=== PATIENT | male | born 1975 | race Two or more races ===

== ENCOUNTER 2024-03-16 14:11 | Outpatient (AMB) | payer MEDICAID, SELFPAY ==
[2024-03-16 14:31] VITALS: BP 116/73; PULSE 66; RESP 19; TEMP 36.2; O2SAT 97; BMI 24.6
--- NOTE | 2024-03-16 14:31 | PD.ORTHCLVIS ---
Vital signs 03/16/24 14:31 Height 1.75 m Height Method Stated Weight 75.438 kg Weight Measurement Method Standing Scale BMI 24.6 BP 116/73 Blood Pressure Source Automatic Cuff Blood Pressure Location Right Upper Arm Position Sitting Respiration 19 Pulse 66 Pulse Source Monitor Temp 97.2 F Temp Source Temporal Artery Scan Pulse Oximetry (%) 97 Oxygen Delivery Method Room Air Med/Allergies Allergies & Medications Allergies No Known Allergies Allergy (Verified 03/16/24 14:37) Medication Reconciliation cholecalciferol (vitamin D3) 1,250 mcg (50,000 unit) tablet 1,250 mcg PO QWEEK 12/30/23 [History Confirmed 03/16/24] meloxicam 7.5 mg tablet 7.5 mg PO QDAY #45 tabs 01/03/24 [Rx Confirmed 03/16/24] Subjective Visit Visit for: follow up visit, hip and MRI Immunization / Flu Flu Vaccine in the Last 12 Months: Yes Flu Vaccine Exclusion Criteria: Already Received History of Present Illness Chief complaint: MRI RESULTS Patient is a 48-year-old male with left hip pain. .He had a fall off of a roof last year. He has been walking on it since then. He reports the pain has been progressive. He has not been evaluated by physician until 2 months ago and was told he had a left hip fracture. He is using crutches to ambulate. Personal History Occupation: [employer] Red flag PMH: smoker Pain Pain level (0-10): 8 Pain duration: CONSTANT Pain location: groin Pain quality: sharp Pain timing: night, increases with activity and stairs Associated signs & symptoms: stiffness Ambulatory data Ambulatory device: other (specify) (CRUTCHES) Treatments Improvement with previous injections: No Improvement with PT: No Improvement with NSAIDS: no Review of Systems Review of Systems: All systems negative unless otherwise noted in HPI. Exam Exam Patient is in no acute distress and is cooperative with the examination today. Breathing is nonlabored. In no respiratory distress. Patient has no paraspinal tenderness. Spinal deformity [cannot] be appreciated. The gait of the patient is [nonantalgic] Bilateral extremities were evaluated and demonstrates sensation intact to light touch. Palpable pedal pulses are present. No significant edema is present. Bilateral knees were examined and the patient has full strength and range of motion.. The right hip was examined. Patient was able to flex to 90 degrees, adduct to 30 degrees, abduct to 40 degrees, internally rotate to 20 degrees, and externally rotate to 20 degrees. Patient has a negative logroll. Stinchfield is negative. The patient is nontender diffusely to touch. The left hip was examined. Patient was able to flex to [90] degrees, adduct to [30] degrees, abduct to [40] degrees, internally rotate to [20] degrees, and externally rotate to [20] degrees. Patient has a positive logroll. Leg lengths are equal. He has no x-rays X-rays demonstrate significant sclerosis in the left hand with some collapse indicative of left hip avascular necrosis. Assessment and Plan Problem List (1) Avascular necrosis of bone of left hip: Status: Acute Plan: Patient is a 48-year-old male with left hip avascular necrosis. We discussed nonoperative and operative options. We obtained an MRI and this confirmed avascular necrosis of the femoral head. We thus discussed total hip replacement is a reasonable option given the failure of conservative treatment occluding physical therapy. The nature and purpose of the total hip replacement, alternative method(s) of treatment, the material risks involved, and the possibility of complications were fully explained to the patient. The patient does NOT have any of the following contraindications to PHIL: - Active infection of the hip joint, OR - Active systemic bacteremia, OR - Active skin infection or open wound at surgical site, OR - Neuropathic arthritis, OR - Severe, rapidly progressive neurological disease, OR - Severe medical condition that makes risks of the surgery outweigh the potential benefit The patient was told the most common risks and complications associated with a total hip replacement include, but are not limited to: blood clots in the leg, fatal pulmonary embolism, dislocation of the prosthesis, intraoperative and postoperative fractures of the femur or acetabulum, infection, failure of the prosthesis or grafting materials, complications from anesthesia, reactions to blood transfusions, postoperative leg length inequality, instability of the hip replacement, nerve damage or injury, vascular injury, delayed wound healing, infection, other injury or even . In addition, there are risks associated with anesthesia given during this operation. Also, the patient was told that after undergoing a total hip replacement there may still be persistent pain or disability. The patient was informed that the success of this operation in part depends upon the mechanical devices which are going to be implanted and that these devices can fail or malfunction, and may need to be repaired or replaced and there are no guarantees as to the longevity of this device or its parts and that it or its parts could fail prematurely. The patient was also notified that during the course of surgery, there may be a need to use bone graft from donors, and that any bone graft used will be carefully screened for communicable diseases, including AIDS, hepatitis, Vicente-Creutzfeldt, or other diseases, but despite the screening procedures, there is a small chance that they could contract one of these diseases. Finally, the patient was asked to follow completely and fully with all advice and recommended treatments, and that recovery and ultimate outcome are affected by their compliance with recommended treatment. We discussed the risks, benefits and treatment alternatives, and the patient is interested in proceeding with surgery. We will try to set this up as expeditiously as possible. Office Procedures GNS Level of Care Nursing/Assessment Patient Status: Established Patient Nursing Assessment/Reassesment: Medication Reconciliation, Update PMH in EMR and Vital Signs Coordination of Care: Complex Care and Chronic Disease 1-5, Education Complex Pt/Fam, Consent,records obtained, informed consent, 1 Ins Authorization and Staff clarify orders Established Patient Charge Established Patient Point Assignment: 105 Established Patient Point Charge: EP Level 3 (80-115) Past Medical History Past Medical History Have you ever been diagnosed with any of the following: Respiratory Problems Cough: No Smoking: Yes (CANNABIS) Smoking Exposure: Yes
== END 2024-03-16 14:47 | disposition home or self-care (01) ==
LOC: HODSRG 14:11
PROVIDERS: Supervising Provider Orthopaedic Surgery Adult Reconstructive Orthopaedic Surgery; Visit Provider Orthopaedic Surgery Adult Reconstructive Orthopaedic Surgery
DX: M25.552 Pain in left hip (principal); Z87.891 Personal history of nicotine dependence
CPT/HCPCS: 99213; G0463

== ENCOUNTER 2024-04-17 14:20 | Outpatient (AMB) | payer MEDICAID, SELFPAY ==
[2024-04-17 14:35] VITALS: BP 107/72; PULSE 72; RESP 18; TEMP 36.4; O2SAT 97; BMI 31.1
--- NOTE | 2024-04-17 14:35 | ORTHONT_ITS ---
Vital signs 04/17/24 14:35 Height 1.57 m Height Method Stated Weight 76.856 kg Weight Measurement Method Standing Scale BMI 31.1 BP 107/72 Blood Pressure Source Automatic Cuff Blood Pressure Location Right Upper Arm Position Sitting Respiration 18 Pulse 72 Pulse Source Monitor Temp 97.5 F Temp Source Temporal Artery Scan Pulse Oximetry (%) 97 Oxygen Delivery Method Room Air Med/Allergies Allergies & Medications Allergies No Known Allergies Allergy (Verified 04/17/24 14:39) Medication Reconciliation meloxicam 7.5 mg tablet 7.5 mg PO QDAY #45 tabs 01/03/24 [Rx Confirmed 04/17/24] acetaminophen 500 mg tablet (Acetaminophen Extra Strength) 1,000 mg (2 x 500 mg) PO Q6H PRN pain #90 tabs 03/28/24 [Rx Confirmed 04/17/24] aspirin 81 mg tablet,delayed release 81 mg PO BID #60 tabs 03/28/24 [Rx Confirmed 04/17/24] doxycycline hyclate 100 mg tablet 100 mg PO BID #14 tabs 03/28/24 [Rx Confirmed 04/17/24] gabapentin 300 mg capsule 300 mg PO .qhs #30 caps 03/28/24 [Rx Confirmed 04/17/24] oxycodone 5 mg tablet 5 mg PO Q6H PRN pain #28 tabs 03/28/24 [Rx Confirmed 04/17/24] sennosides 8.6 mg-docusate sodium 50 mg tablet (Senna-S) 1 tab-cap PO QDAY #30 tabs 03/28/24 [Rx Confirmed 04/17/24] Subjective Visit Visit for: follow up visit and knee Immunization / Flu Flu Vaccine in the Last 12 Months: No Flu Vaccine Exclusion Criteria: Already Received History of Present Illness Chief complaint: MRI RESULTS Patient is a 48-year-old male with left hip pain. He is status post left hip replacement. He is doing well. He is in outpatient physical therapy Personal History Occupation: [employer] Red flag PMH: smoker Pain Pain level (0-10): 4 Pain duration: ON AND OFF Pain location: inside (medial) Pain quality: aching Pain timing: increases with activity Associated signs & symptoms: none Ambulatory data Ambulatory device: none Treatments Improvement with previous injections: No Improvement with PT: No Improvement with NSAIDS: no Review of Systems Review of Systems: All systems negative unless otherwise noted in HPI. Exam Exam Patient is in no acute distress and is cooperative with the examination today. Breathing is nonlabored. In no respiratory distress. Patient has no paraspinal tenderness. Spinal deformity [cannot] be appreciated. The gait of the patient is [nonantalgic] Bilateral extremities were evaluated and demonstrates sensation intact to light touch. Palpable pedal pulses are present. No significant edema is present. Bilateral knees were examined and the patient has full strength and range of motion.. The right hip was examined. Patient was able to flex to 90 degrees, adduct to 30 degrees, abduct to 40 degrees, internally rotate to 20 degrees, and externally rotate to 20 degrees. Patient has a negative logroll. Stinchfield is negative. The patient is nontender diffusely to touch. Left hip incision is clean dry and intact Assessment and Plan Problem List (1) Avascular necrosis of bone of left hip: Status: Acute (2) Status post total hip replacement, left: Status: Acute Plan: Patient is doing well status post left total hip replacement. We recommend that he continue outpatient physical therapy. He should finish off his aspirin. Will see him in 4 weeks Office Procedures GNS Level of Care Nursing/Assessment Patient Status: Established Patient Nursing Assessment/Reassesment: Medication Reconciliation, Update PMH in EMR and Vital Signs Coordination of Care: Complex Care and Chronic Disease 1-5, Education Complex Pt /Fam, Consent,records obtained, informed consent, 1 Ins Authorization, Results/Orders obtained and Staff clarify orders Established Patient Charge Established Patient Point Assignment: 110 Established Patient Point Charge: EP Level 3 (80-115) Past Medical History Past Medical History Have you ever been diagnosed with any of the following: Neurological Problems Seizures: No Head Trauma: Yes Cardiology Problems Congestive Heart Failure: No Respiratory Problems Chronic Obstructive Pulmonary Disease (COPD): No Bronchitis: Yes (younger) Cough: No Smoking: Yes (CANNABIS) Smoking Exposure: Yes Stomache/Intestinal Problems Pancreatitis: Yes Genital/Urinary Problems Renal Disease: No Musculoskeletal Problems Fractures: Yes (Left hip) Endocrine Problems Diabetes Mellitus Type 1: No Diabetes Mellitus Type 2: No Psychologic Problems Depression: Yes (no meds) Anxiety: Yes Other Problems Hospitalization: Yes (pancreatitis) Shingles: No Blood Transfusions: No Blood Transfusion Reaction: No Anesthesia Reactions: No Chicken Pox: Yes Cancer: No
== END 2024-04-17 14:55 | disposition home or self-care (01) ==
LOC: HODSRG 14:20
PROVIDERS: Supervising Provider Orthopaedic Surgery Adult Reconstructive Orthopaedic Surgery; Visit Provider Orthopaedic Surgery Adult Reconstructive Orthopaedic Surgery
DX: M87.88 Other osteonecrosis, other site (principal); Z96.642 Presence of left artificial hip joint
CPT/HCPCS: 99213; G0463

== ENCOUNTER → 2024-06-04 | Outpatient (CLI) | payer MEDICAID, SELFPAY ==
--- NOTE | 2024-06-04 | XR_ITS ---
Examination:Left hip AP, lateral, AP pelvis 3 views Technique: Hip AP lateral, AP pelvis, 3 views Exam date and time:June 04, 2024 1132 hours Comparison 06/28/2023 INDICATIONS: Postop left hip arthroplasty March 28, 2024 FINDINGS: Total left hip arthroplasty. Satisfactory alignment. No fracture or dislocation. No loosening of the prosthetic components Mild to moderate narrowing right hip joint Bones of the pelvis intact IMPRESSION: Total left hip arthroplasty with satisfactory alignment.
== END | disposition home or self-care (01) ==
LOC: CDIM 11:09
PROVIDERS: Referring Provider Orthopaedic Surgery Adult Reconstructive Orthopaedic Surgery; Visit Provider Orthopaedic Surgery Adult Reconstructive Orthopaedic Surgery
DX: M16.12 Unilateral primary osteoarthritis, left hip (principal); Z96.642 Presence of left artificial hip joint
CPT/HCPCS: 73502

== ENCOUNTER 2024-06-15 09:06 | Outpatient (AMB) | payer MEDICAID, SELFPAY ==
[2024-06-15 09:26] VITALS: BP 121/83; PULSE 59; RESP 18; TEMP 36.3; O2SAT 99; BMI 30.7
--- NOTE | 2024-06-15 09:26 | PD.ORTHCLVIS ---
Vital signs 06/15/24 09:26 Height 1.57 m Height Method Stated Weight 75.863 kg Weight Measurement Method Standing Scale BMI 30.7 BP 121/83 Blood Pressure Source Automatic Cuff Blood Pressure Location Right Upper Arm Position Sitting Respiration 18 Pulse 59 L Pulse Source Monitor Temp 97.3 F Temp Source Temporal Artery Scan Pulse Oximetry (%) 99 Oxygen Delivery Method Room Air Med/Allergies Allergies & Medications Allergies No Known Allergies Allergy (Verified 06/15/24 09:27) Medication Reconciliation meloxicam 7.5 mg tablet 7.5 mg PO QDAY #45 tabs 01/03/24 [Rx Confirmed 06/15/24] gabapentin 300 mg capsule 300 mg PO .qhs #30 caps 03/28/24 [Rx Confirmed 06/15/24] Exam Exam Patient is in no acute distress and is cooperative with the examination today. Breathing is nonlabored. In no respiratory distress. Patient has no paraspinal tenderness. Spinal deformity [cannot] be appreciated. The gait of the patient is [nonantalgic] Bilateral extremities were evaluated and demonstrates sensation intact to light touch. Palpable pedal pulses are present. No significant edema is present. Bilateral knees were examined and the patient has full strength and range of motion.. The right hip was examined. Patient was able to flex to 90 degrees, adduct to 30 degrees, abduct to 40 degrees, internally rotate to 20 degrees, and externally rotate to 20 degrees. Patient has a negative logroll. Stinchfield is negative. The patient is nontender diffusely to touch. Left hip incision is clean dry and intact X-rays of the left hip replacement were reviewed. This demonstrates a cementless total hip replacement in good alignment position Assessment and Plan Problem List (1) Avascular necrosis of bone of left hip: Status: Acute (2) Status post total hip replacement, left: Status: Acute Plan: Patient is doing well status post left total hip replacement. We recommend that he continue outpatient physical therapy. He should finish off his aspirin. He is working with physical therapy and is doing [employer] workouts. He reports that his work is very demanding and requires him to lift 60 pounds. He is not quite there yet and we will thus give him 2 more months in order for him to return to work. He appears to be doing well Office Procedures GNS Level of Care Nursing/Assessment Patient Status: Established Patient Nursing Assessment/Reassesment: Medication Reconciliation, Update PMH in EMR and Vital Signs Coordination of Care: Complex Care and Chronic Disease 1-5, Education Complex Pt/Fam, Consent,records obtained, informed consent, Results/Orders obtained and Staff clarify orders Established Patient Charge Established Patient Point Assignment: 95 Established Patient Point Charge: EP Level 3 (80-115) MA Intake Visit Data Collection New Patient or Established: Established Patient (seen at [facility] within 3 years) Reason for Visit:: 4 WEEK FOLLOW UP HIP SX Seen by Clinical Staff ONLY (RN/MA): No Verbal consent obtained for Telemed visit?: No Information Technology Security Manager Required: No PCP or OBGYN visit in last 3 months: Yes Hx Now: No Do You Feel Safe at Home: Yes Authorities Contacted: N/A Questionairres Past Medical History Past Medical History Have you ever been diagnosed with any of the following: Neurological Problems Seizures: No Head Trauma: Yes Cardiology Problems Congestive Heart Failure: No Respiratory Problems Chronic Obstructive Pulmonary Disease (COPD): No Bronchitis: Yes (younger) Cough: No Smoking: Yes (CANNABIS) Smoking Exposure: Yes Stomache/Intestinal Problems Pancreatitis: Yes Genital/Urinary Problems Renal Disease: No Musculoskeletal Problems Fractures: Yes (Left hip) Endocrine Problems Diabetes Mellitus Type 1: No Diabetes Mellitus Type 2: No Psychologic Problems Depression: Yes (no meds) Anxiety: Yes Other Problems Hospitalization: Yes (pancreatitis) Shingles: No Blood Transfusions: No Blood Transfusion Reaction: No Anesthesia Reactions: No Chicken Pox: Yes Cancer: No Subjective Visit Visit for: follow up visit, post op #2 and hip Immunization / Flu Flu Vaccine in the Last 12 Months: No Flu Vaccine Exclusion Criteria: No Exclusion Criteria History of Present Illness Chief complaint: F/U 4 WKS HIP SX Date of injury / onset of symptoms: 03/28/2024 Alireza is a 48-year-old male who is 3-month status post left total hip replacement for avascular porosis. He has minimal pain. He is using a cane. He is doing [employer] workouts at Personal History Occupation: UNEMPLOYED Red flag PMH: none Pain Pain level (0-10): 2 Pain duration: COMES AND GOES Pain location: outside (lateral) and anterior Pain quality: sharp, dull and aching Pain timing: increases with activity Associated signs & symptoms: weakness Ambulatory data Ambulatory device: cane Treatments Improvement with previous injections: No Improvement with PT: Yes Improvement with NSAIDS: n/a Review of Systems Review of Systems: All systems negative unless otherwise noted in HPI.
== END 2024-06-15 09:56 | disposition home or self-care (01) ==
LOC: HODSRG 09:06
PROVIDERS: PCP Family Medicine; Referring Provider Family Medicine; Supervising Provider Orthopaedic Surgery Adult Reconstructive Orthopaedic Surgery; Visit Provider Orthopaedic Surgery Adult Reconstructive Orthopaedic Surgery
DX: M87.88 Other osteonecrosis, other site (principal); Z96.642 Presence of left artificial hip joint
CPT/HCPCS: 99213; G0463

== ENCOUNTER 2024-08-16 10:14 | Outpatient (AMB) | payer MEDICAID, SELFPAY ==
--- NOTE | 2024-08-16 11:00 | PD.ORTHCLVIS ---
Vital signs 08/16/24 11:01 Height 1.57 m Height Method Stated Weight 75.948 kg Weight Measurement Method Standing Scale BMI 30.8 BP 115/75 Blood Pressure Source Automatic Cuff Blood Pressure Location Left Upper Arm Position Sitting Respiration 18 Pulse 60 Pulse Source Monitor Temp 97.7 F Temp Source Temporal Artery Scan Pulse Oximetry (%) 97 Oxygen Delivery Method Room Air Med/Allergies Allergies & Medications Allergies No Known Allergies Allergy (Verified 06/15/24 09:27) Medication Reconciliation meloxicam 7.5 mg tablet 7.5 mg PO QDAY #45 tabs 01/03/24 [Rx Confirmed 08/16/24] gabapentin 300 mg capsule 300 mg PO .qhs #30 caps 03/28/24 [Rx Confirmed 08/16/24] Exam Exam Patient is in no acute distress and is cooperative with the examination today. Breathing is nonlabored. In no respiratory distress. Patient has no paraspinal tenderness. Spinal deformity [cannot] be appreciated. The gait of the patient is [nonantalgic] Bilateral extremities were evaluated and demonstrates sensation intact to light touch. Palpable pedal pulses are present. No significant edema is present. Bilateral knees were examined and the patient has full strength and range of motion.. The right hip was examined. Patient was able to flex to 90 degrees, adduct to 30 degrees, abduct to 40 degrees, internally rotate to 20 degrees, and externally rotate to 20 degrees. Patient has a negative logroll. Stinchfield is negative. The patient is nontender diffusely to touch. Left hip incision is clean dry and intact X-rays of the left hip replacement were reviewed. This demonstrates a cementless total hip replacement in good alignment position Assessment and Plan Problem List (1) Avascular necrosis of bone of left hip: Status: Acute (2) Status post total hip replacement, left: Status: Acute Plan: Patient is doing well status post left total hip replacement. We recommend that he continue outpatient physical therapy. He is working with physical therapy and is doing [employer] workouts. He reports that his work is very demanding and requires him to lift 60 pounds. He is not quite there yet and we will thus give him 2 more months in order for him to return to work. He appears to be doing well Office Procedures GNS Level of Care Nursing/Assessment Patient Status: Established Patient Nursing Assessment/Reassesment: Medication Reconciliation, Update PMH in EMR and Vital Signs Coordination of Care: Complex Care and Chronic Disease 1-5, Education Complex Pt/Fam, Consent,records obtained, informed consent, Results/Orders obtained and Staff clarify orders Established Patient Charge Established Patient Point Assignment: 95 Established Patient Point Charge: EP Level 3 (80-115) MA Intake Visit Data Collection New Patient or Established: Established Patient (seen at [facility] within 3 years) Reason for Visit:: F/U HIP REPLACEMENT Seen by Clinical Staff ONLY (RN/MA): No Ladies Underwear Operator Required: No PCP or OBGYN visit in last 3 months: Yes Hx Now: No Do You Feel Safe at Home: Yes Authorities Contacted: N/A Questionairres Past Medical History Past Medical History Have you ever been diagnosed with any of the following: Neurological Problems Seizures: No Head Trauma: Yes Cardiology Problems Congestive Heart Failure: No Respiratory Problems Chronic Obstructive Pulmonary Disease (COPD): No Bronchitis: Yes (younger) Cough: No Smoking: Yes (CANNABIS) Smoking Exposure: Yes Stomache/Intestinal Problems Pancreatitis: Yes Genital/Urinary Problems Renal Disease: No Musculoskeletal Problems Fractures: Yes (Left hip) Endocrine Problems Diabetes Mellitus Type 1: No Diabetes Mellitus Type 2: No Psychologic Problems Depression: Yes (no meds) Anxiety: Yes Other Problems Hospitalization: Yes (pancreatitis) Shingles: No Blood Transfusions: No Blood Transfusion Reaction: No Anesthesia Reactions: No Chicken Pox: Yes Cancer: No Subjective Visit Visit for: follow up visit and hip Immunization / Flu Flu Vaccine in the Last 12 Months: No Flu Vaccine Exclusion Criteria: No Exclusion Criteria History of Present Illness Chief complaint: F/U 4 WKS HIP SX Date of injury / onset of symptoms: 03/28/2024 Alireza is a 48-year-old male who is 5-month status post left total hip replacement for avascular porosis. He has minimal pain. Personal History Occupation: UNEMPLOYED Red flag PMH: none Pain Pain level (0-10): 1 Pain duration: COMES AND GOES Pain location: outside (lateral) Pain quality: sharp Pain timing: increases with activity Associated signs & symptoms: weakness Ambulatory data Ambulatory device: none Treatments Improvement with previous injections: No Improvement with PT: No Improvement with NSAIDS: no Review of Systems Review of Systems: All systems negative unless otherwise noted in HPI.
[2024-08-16 11:01] VITALS: BP 115/75; PULSE 60; RESP 18; TEMP 36.5; O2SAT 97; BMI 30.8
--- NOTE | 2024-08-16 11:33 | XR_ITS ---
Examination:Left hip AP, lateral, AP pelvis 3 views Technique: Hip AP lateral, AP pelvis, 3 views Exam date and time:August 16, 2024, 11.1 p.m. Indications: Status post left hip replacement March 2024 Findings: Total left hip arthroplasty. Satisfactory alignment Moderate narrowing right hip joint No fracture Impression: Total left hip arthroplasty with satisfactory alignment.
== END 2024-08-16 11:38 | disposition home or self-care (01) ==
LOC: HODSRG 10:14
PROVIDERS: Supervising Provider Orthopaedic Surgery Adult Reconstructive Orthopaedic Surgery; Visit Provider Orthopaedic Surgery Adult Reconstructive Orthopaedic Surgery
DX: M87.9 Osteonecrosis, unspecified (principal); Z96.642 Presence of left artificial hip joint
CPT/HCPCS: 73502; 99213; G0463

== ENCOUNTER 2024-10-18 10:07 | Outpatient (AMB) | payer MEDICAID, SELFPAY ==
--- NOTE | 2024-10-18 10:21 | ORTHONT_ITS ---
Vital signs 10/18/24 10:22 Height 1.57 m Height Method Stated Weight 76.289 kg Weight Measurement Method Standing Scale BMI 30.9 BP 109/74 Blood Pressure Source Automatic Cuff Blood Pressure Location Right Upper Arm Position Sitting Respiration 17 Pulse 62 Pulse Source Monitor Temp 98.1 F Temp Source Temporal Artery Scan Pulse Oximetry (%) 98 Oxygen Delivery Method Room Air Med/Allergies Allergies & Medications Allergies No Known Allergies Allergy (Verified 10/18/24 10:23) Medication Reconciliation meloxicam 7.5 mg tablet 7.5 mg PO QDAY #45 tabs 01/03/24 [Rx Confirmed 10/18/24] gabapentin 300 mg capsule 300 mg PO .qhs #30 caps 03/28/24 [Rx Confirmed 10/18/24] Exam Exam Patient is in no acute distress and is cooperative with the examination today. Breathing is nonlabored. In no respiratory distress. Patient has no paraspinal tenderness. Spinal deformity [cannot] be appreciated. The gait of the patient is [nonantalgic] Bilateral extremities were evaluated and demonstrates sensation intact to light touch. Palpable pedal pulses are present. No significant edema is present. Bilateral knees were examined and the patient has full strength and range of motion.. The right hip was examined. Patient was able to flex to 90 degrees, adduct to 30 degrees, abduct to 40 degrees, internally rotate to 20 degrees, and externally rotate to 20 degrees. Patient has a negative logroll. Stinchfield is negative. The patient is nontender diffusely to touch. Left hip incision is clean dry and intact X-rays of the left hip replacement were reviewed. This demonstrates a cementless total hip replacement in good alignment position Assessment and Plan Problem List (1) Avascular necrosis of bone of left hip: Status: Acute (2) Status post total hip replacement, left: Status: Acute Plan: Patient is doing well status post left total hip replacement. He is doing well. We will see him back in 6 months with new xrays Office Procedures GNS Level of Care Nursing/Assessment Patient Status: Established Patient Nursing Assessment/Reassesment: Medication Reconciliation, Update PMH in EMR and Vital Signs Coordination of Care: Complex Care and Chronic Disease 1-5, Consent,records obtained, informed consent, Education Simp Pt/Fam, Results/Orders obtained and Staff clarify orders Established Patient Charge Established Patient Point Assignment: 90 Established Patient Point Charge: EP Level 3 (80-115) MA Intake Visit Data Collection New Patient or Established: Established Patient (seen at [facility] within 3 years) Reason for Visit:: FU LT HIP REPLACEMENT/XRAY RESULT Seen by Clinical Staff ONLY (RN/MA): No Pediatric Dentist Required: No PCP or OBGYN visit in last 3 months: Yes Hx Now: No Do You Feel Safe at Home: Yes Authorities Contacted: N/A Questionairres Past Medical History Past Medical History Have you ever been diagnosed with any of the following: Neurological Problems Seizures: No Head Trauma: Yes Cardiology Problems Congestive Heart Failure: No Respiratory Problems Chronic Obstructive Pulmonary Disease (COPD): No Bronchitis: Yes (younger) Cough: No Smoking: Yes (CANNABIS) Smoking Exposure: Yes Stomache/Intestinal Problems Pancreatitis: Yes Genital/Urinary Problems Renal Disease: No Musculoskeletal Problems Fractures: Yes (Left hip) Endocrine Problems Diabetes Mellitus Type 1: No Diabetes Mellitus Type 2: No Psychologic Problems Depression: Yes (no meds) Anxiety: Yes Other Problems Hospitalization: Yes (pancreatitis) Shingles: No Blood Transfusions: No Blood Transfusion Reaction: No Anesthesia Reactions: No Chicken Pox: Yes Cancer: No Subjective Visit Visit for: follow up visit and post op #2 (LEFT HIP) Immunization / Flu Flu Vaccine in the Last 12 Months: No Flu Vaccine Exclusion Criteria: Refused by Patient History of Present Illness Chief complaint: F/U 4 WKS HIP SX Date of injury / onset of symptoms: 03/28/2024 Alireza is a 48-year-old male who is 5-month status post left total hip replacement for avascular necrosis. He has minimal pain. Personal History Occupation: UNEMPLOYED Red flag PMH: none Pain Pain level (0-10): 0 Pain duration: COMES AND GOES Pain location: outside (lateral) Pain quality: sharp Pain timing: increases with activity Associated signs & symptoms: weakness Ambulatory data Ambulatory device: none Treatments Number of previous injections: 0 Improvement with previous injections: No Number of Physical Therapy sessions: 8 Improvement with PT: Yes Improvement with NSAIDS: n/a Review of Systems Review of Systems: All systems negative unless otherwise noted in HPI.
[2024-10-18 10:22] VITALS: BP 109/74; PULSE 62; RESP 17; TEMP 36.7; O2SAT 98; BMI 30.9
== END 2024-10-18 10:29 | disposition home or self-care (01) ==
LOC: HODSRG 10:07
PROVIDERS: Supervising Provider Orthopaedic Surgery Adult Reconstructive Orthopaedic Surgery; Visit Provider Orthopaedic Surgery Adult Reconstructive Orthopaedic Surgery
DX: M87.88 Other osteonecrosis, other site (principal); Z96.642 Presence of left artificial hip joint
CPT/HCPCS: 99213; G0463

== ENCOUNTER 2024-11-02 08:35 | Outpatient (AMB) | payer MEDICAID, SELFPAY ==
--- NOTE | 2024-11-02 08:41 | PD.ORTHCLVIS ---
Vital signs 11/02/24 08:42 Height 1.57 m Height Method Stated Weight 75.523 kg Weight Measurement Method Standing Scale BMI 30.6 BP 117/78 Blood Pressure Source Automatic Cuff Blood Pressure Location Left Upper Arm Position Sitting Respiration 18 Pulse 54 L Pulse Source Monitor Temp 97.3 F Temp Source Temporal Artery Scan Pulse Oximetry (%) 100 Oxygen Delivery Method Room Air Med/Allergies Allergies & Medications Allergies No Known Allergies Allergy (Verified 11/02/24 08:50) Medication Reconciliation meloxicam 7.5 mg tablet 7.5 mg PO QDAY #45 tabs 01/03/24 [Rx Confirmed 11/02/24] gabapentin 300 mg capsule 300 mg PO .qhs #30 caps 03/28/24 [Rx Confirmed 11/02/24] Exam Exam Patient is in no acute distress and is cooperative with the examination today. Breathing is nonlabored. In no respiratory distress. Patient has no paraspinal tenderness. Spinal deformity [cannot] be appreciated. The gait of the patient is [nonantalgic] Bilateral extremities were evaluated and demonstrates sensation intact to light touch. Palpable pedal pulses are present. No significant edema is present. Bilateral knees were examined and the patient has full strength and range of motion.. The right hip was examined. Patient was able to flex to 90 degrees, adduct to 30 degrees, abduct to 40 degrees, internally rotate to 20 degrees, and externally rotate to 20 degrees. Patient has a negative logroll. Stinchfield is negative. The patient is nontender diffusely to touch. Left hip incision is clean dry and intact X-rays of the left hip replacement were reviewed. This demonstrates a cementless total hip replacement in good alignment position Assessment and Plan Problem List (1) Avascular necrosis of bone of left hip: Status: Acute (2) Status post total hip replacement, left: Status: Acute Plan: Patient is doing well status post left total hip replacement. He is doing well. We will see him back in 6 months with new xrays. Office Procedures GNS Level of Care Nursing/Assessment Patient Status: Established Patient Nursing Assessment/Reassesment: Medication Reconciliation, Update PMH in EMR and Vital Signs Coordination of Care: Complex Care and Chronic Disease 1-5, Education Complex Pt/Fam, Consent,records obtained, informed consent, Results/Orders obtained and Staff clarify orders Established Patient Charge Established Patient Point Assignment: 95 Established Patient Point Charge: EP Level 3 (80-115) MA Intake Visit Data Collection New Patient or Established: Established Patient (seen at [facility] within 3 years) Reason for Visit:: WORKNOTE Seen by Clinical Staff ONLY (RN/MA): No Verbal consent obtained for Telemed visit?: No Manager Intelligence Required: No PCP or OBGYN visit in last 3 months: Yes Hx Now: No Do You Feel Safe at Home: Yes Authorities Contacted: N/A Questionairres Past Medical History Past Medical History Have you ever been diagnosed with any of the following: Neurological Problems Seizures: No Head Trauma: Yes Cardiology Problems Congestive Heart Failure: No Respiratory Problems Chronic Obstructive Pulmonary Disease (COPD): No Bronchitis: Yes (younger) Cough: No Smoking: Yes (CANNABIS) Smoking Exposure: Yes Stomache/Intestinal Problems Pancreatitis: Yes Genital/Urinary Problems Renal Disease: No Musculoskeletal Problems Fractures: Yes (Left hip) Endocrine Problems Diabetes Mellitus Type 1: No Diabetes Mellitus Type 2: No Psychologic Problems Depression: Yes (no meds) Anxiety: Yes Other Problems Hospitalization: Yes (pancreatitis) Shingles: No Blood Transfusions: No Blood Transfusion Reaction: No Anesthesia Reactions: No Chicken Pox: Yes Cancer: No Subjective Visit Visit for: follow up visit, post op #2 (LEFT HIP) and hip Immunization / Flu Flu Vaccine in the Last 12 Months: No Flu Vaccine Exclusion Criteria: Refused by Patient and No Exclusion Criteria History of Present Illness Chief complaint: F/U 4 WKS HIP SX Date of injury / onset of symptoms: 03/28/2024 Alireza is a 48-year-old male who is 5-month status post left total hip replacement for avascular necrosis. He has minimal pain. He reports that he had some difficulty lifting 40 pounds Personal History Occupation: UNEMPLOYED Red flag PMH: BMI and none BMI Counceling provided: Yes Pain Pain level (0-10): 0 Pain duration: COMES AND GOES Pain location: outside (lateral), anterior and posterior Pain quality: sharp and dull Pain timing: increases with activity Associated signs & symptoms: weakness and none Ambulatory data Ambulatory device: none Treatments Number of previous injections: 0 Improvement with previous injections: No Number of Physical Therapy sessions: 8 Improvement with PT: Yes Improvement with NSAIDS: n/a Review of Systems Review of Systems: All systems negative unless otherwise noted in HPI.
[2024-11-02 08:42] VITALS: BP 117/78; PULSE 54; RESP 18; TEMP 36.3; O2SAT 100; BMI 30.6
== END 2024-11-02 08:45 | disposition home or self-care (01) ==
LOC: HODSRG 08:35
PROVIDERS: Supervising Provider Orthopaedic Surgery Adult Reconstructive Orthopaedic Surgery; Visit Provider Orthopaedic Surgery Adult Reconstructive Orthopaedic Surgery
DX: M87.88 Other osteonecrosis, other site (principal); Z96.642 Presence of left artificial hip joint
CPT/HCPCS: 99213; G0463